=== PATIENT | male | born 2000 | race Caucasian/White ===

== ENCOUNTER 2018-04-14 20:00 | Emergency (ER) | payer SELFPAY, MEDICAID ==
[2018-04-14] MEDS: ONDANSETRON (ODT) 4 MG TAB ODT (23:01)
[2018-04-14] MEDS: HYDROCODONE/APAP (5/325) TAB PO (23:02)
== END 2018-04-15 00:40 | disposition home or self-care (01) ==
LOC: FTE 04-15 00:40
DX: S22.080A Wedge compression fracture of T11-T12 vertebra, initial encounter for closed fracture (principal); V49.50XA Passenger injured in collision with unspecified motor vehicles in traffic accident, initial encounter
CPT/HCPCS: 71046; 72100; 76705; 99284-25